=== PATIENT | male | born 1965 | race Caucasian/White ===

== ENCOUNTER 2017-12-11 06:03 | Emergency (ER) | payer MEDICAID ==
[~2017-12-11] VITALS: Ht 190.5 cm; Wt 90.7 kg
[2017-12-11 06:03] VITALS: BP_SYST 127
[2017-12-11 06:30] VITALS: BP_SYST 125
[2017-12-11] MEDS: AZITHROMYCIN 250 MG TABLET PO ONE (06:35)
[2017-12-11] MEDS: cefTRIAXone 500 MG in LIDOCAINE 1%, 20 ML MDV 1 ML IM ONE (06:35)
[2017-12-13 03:06] LABS: CHLAMYDIA TRACHOMATIS NAA Negative (Negative)
[2017-12-16 08:20] LABS: NEISSERIA GONORRHOEAE NAA Positive (Negative)
== END 2017-12-11 06:30 | disposition home or self-care (01) ==
LOC: SED 06:03
DX: N34.2 Other urethritis (principal)
CPT/HCPCS: 87491; 87591; 96372; 99284; J0696; Q0144; 99283